=== PATIENT | male | born 1970 | race Caucasian/White ===

== ENCOUNTER 2017-01-28 10:00 | Emergency (ER) | payer OTHER ==
[~2017-01-28] VITALS: Ht 177.8 cm; Wt 83.5 kg
[2017-01-28 10:14] VITALS: BP 128/78
--- NOTE | 2017-01-28 10:31 | NUR ---
ASSUMED PATIENT CARE, CONCUR WITH TRIAGE ASSESSMENT. SEEN AND EVALUATED BY PROVIDER, MSE COMPLETED.
[2017-01-28] MEDS ORDERED: KETOROLAC 60 MG/2 ML VIAL IM ONE (10:45)
--- NOTE | 2017-01-28 10:50 | NUR ---
KNEE XRAY DONE, MEDICATED FOR PAIN WITH TORADOL IM PER MD ORDER.
[2017-01-28 11:24] VITALS: BP 125/58
--- NOTE | 2017-01-28 11:29 | NUR ---
CRUTCH TRAINING COMPLETED WITH SATISFACTORY RETURN DEMO. DC HOME WITH INSTRUCTIONS AND PRESCRIPTIONS, UNDERSTOOD BY PATIENT WELL, VSWNL. NO DISTRESS. ENDORSING IMPROVEMENT IN KNEE PAIN.
== END 2017-01-28 11:24 | disposition home or self-care (01) ==
LOC: MED 10:00
DX: S80.01XA Contusion of right knee, initial encounter (principal); W19.XXXA Unspecified fall, initial encounter; Y93.89 Activity, other specified; Y92.69 Other specified industrial and construction area as the place of occurrence of the external cause; Y99.0 Civilian activity done for income or pay
CPT/HCPCS: 73562; 96372; 99284; J1885